=== PATIENT | male | born 1985 | race Caucasian/White ===

== ENCOUNTER 2017-02-16 16:13 | Emergency (ER) | payer OTHER ==
[~2017-02-16] VITALS: Ht 188 cm; Wt 63.6 kg
[2017-02-16 16:43] VITALS: BP 125/69; PULSE 86; RESP 12; O2SAT 97
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
[2017-02-16] MEDS ORDERED: OXYC5TAB72 PO (18:52)
== END 2017-02-16 18:59 | disposition home or self-care (01) ==
LOC: SED 16:13
DX: M54.5 Low back pain (principal)

== ENCOUNTER 2017-02-19 09:44 | Emergency (ER) | payer MEDICAID, OTHER ==
[~2017-02-19] VITALS: Ht 188 cm; Wt 63.6 kg
[~2017-02-19 09:44] MED LIST: OXYC5TAB72 PO
[2017-02-19 10:03] VITALS: BP 114/71; PULSE 70; RESP 10; O2SAT 99
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
[2017-02-19] MEDS ORDERED: IBUP800T28 PO (10:39)
[2017-02-19 11:23] VITALS: BP 106/70; O2SAT 100
== END 2017-02-19 11:21 | disposition home or self-care (01) ==
LOC: SED 09:44
DX: S39.012A Strain of muscle, fascia and tendon of lower back, initial encounter (principal); W22.8XXA Striking against or struck by other objects, initial encounter; Y93.72 Activity, wrestling; Y92.9 Unspecified place or not applicable; Y99.8 Other external cause status; J45.909 Unspecified asthma, uncomplicated; F17.200 Nicotine dependence, unspecified, uncomplicated